=== PATIENT | male | born 1970 | race Caucasian/White ===

== ENCOUNTER → 2017-05-07 | Outpatient (CLI) | payer OTHER ==
[~2017-05-07] VITALS: Ht 188 cm; Wt 124.7 kg
[~2017-05-07] MED LIST: BYSTOLIC 5 MG5 M1 PO; CRESTOR5 MG PO; DIOVAN 80 MG TA80 M1 PO; ZANTAC 150MG T150 MG PO
--- NOTE | ~2017-05-07 | CATHLAB ---
[facility] [address] [place] [address] INVASIVE PROCEDURE REPORT Name: ELIAS OLIVEIRA Room #: REG Vaishali#: [id number] Admission: 05/07/17 Attend Phys: Sherif Kent Discharge: Date of : 66 Date of Service: 05/08/17 0948 Report #: [id number] THIS REPORT FOR: //name// APPROVED REPORT Patient Details Patient Status: Out-Patient Room #: The patient is a 47 year-old male Event Personnel Sherif Dwyer Industrial Paramedic, Natasha Rios Monitor, Rodrigo Duran RN, Gabriel Shaw, Mayank Mancuso RT(R)(CV) Monitor Procedures Performed Art Access - R femoral artery* [id number] Initial Mod Sed Same Phys/QHP Gr5y [id number] Left Heart Cath w/or w/o Coronaries [id number] [facility] Hemostasis with Manual pressure, supervision of conscious sedation Indication Dyspnea, Positive stress test, Chest pain Procedure Narrative The patient was brought electively to the Cardiac Catheterization Laboratory and was prepped and draped in a sterile manner. The Right Groin^ was infiltrated with 1% Lidocaine subcutaneous anesthesia. The right femoral accessed via ultrasound guidance. A PINNACLE 4FR Sheath #[id number] sheath was inserted into the RFA^. Coronary angiography was performed using coronary diagnostic catheters. The right coronary system was accessed and visualized with a JR4 catheter. The left coronary system was accessed and visualized with a JL4 catheter. The left ventricle was accessed and visualized with a JR4 catheter. Left ventricular/Aortic Valve gradient assessed via catheter pullback. Hemostasis was obtained with manual pressure following sheath removal without any complications. The patient tolerated the procedure well and there were no complications associated with the procedure. There was no hematoma. Intraoperative Conscious Sedation Sedation start time: 952 Case end Time: 1008 Versed 2 mg Fluoro Time: 2.40 minutes [facility] [place] [address] [place] [address] INVASIVE PROCEDURE REPORT Name: ELIAS OLIVEIRA Room #: REG Vaishali#: [id number] Admission: 05/07/17 Attend Phys: Sherif Kent Discharge: Date of : 66 Date of Service: 05/08/17 0948 Report #: [id number] Dose: DAP 4196.00 cGycm2 636 mGy Contrast Type and Amount: Omnipaque 60 ml Diagnostic Cath Left Main Normal origin and moderate caliber bifurcating into a left anterior descending and left circumflex coronary artery. Free of high-grade stenosis. LAD Small to moderate caliber vessel which has luminal irregularities of 30% or less in the proximal portion. Beyond the origin of the first septal human services instructor the vessel then proceeded any anterior interventricular sulcus tapering in its size bifurcating at its terminus at the apex is a type II vessel. There is no significant high-grade lesions identified. Circumflex Small to moderate caliber vessel which gives rise to an early small caliber marginal branch. There is an eccentric lesion that appears to be from 40-80% in different views proximally but that is not appeared to decrease antegrade flow significantly. The marginal and continues towards the apex. The circumflex stent procedure in the AV groove terminating as a small posterior wall branch OM1 Small to moderate caliber vessel which has an eccentric proximal lesion ranging in size from 40-80% depending on the view. It involves the origin and is at an angulation from the circumflex proper. Right Coronary Moderate caliber vessel of normal origin proceeds in the AV groove giving rise to an RV marginal branch free of high-grade disease. The right coronary then continues posteriorly to the crux of the heart where it gives rise to a moderate caliber posterior descending artery which is free of high-grade disease but does have some luminal irregularities. The distal right coronary artery consists of a small posterolateral branch free of high-grade obstructive lesions. Left Ventriculography Left Ventriculography was not performed. Hemodynamics The aortic pressure is 161/99 mmHg with a mean of 125 mmHg. The left ventricular pressure is 175/10 mmHg with a mean of mmHg. The left ventricular end diastolic pressure is 28 mmHg. Conclusion 1. Coronary disease, at least moderate circumflex marginal branch lesion 2. Normal hemodynamics Recommendations [address] [address] INVASIVE PROCEDURE REPORT Name: ELIAS OLIVEIRA Room #: REG AMEENA Tom#: [id number] Admission: 05/07/17 Attend Phys: Sherif Kent Discharge: Date of : 66 Date of Service: 05/08/17 0948 Report #: [id number] Cardiac Risk Reduction Program Aggressive Medical Therapy In view of the origin of the lesion being a sub-optimal location for standard PCI stenting I will optimize medical regimen control hypertension and proceed with a vigorous medical optimization regimen. We'll also obtain information on bifurcating stents so that we can consider that as an option <ELECTRONICALLY SIGNED> By: Sherif Dwyer MD 05/08/17947 7 7 Sherif Dwyer MD /INF
[2017-05-07 08:20] VITALS: BP 142/84
[2017-05-07 08:57] LABS: HEMATOCRIT 48.5 % (42.0-52.0); HEMOGLOBIN 16.5 gm/dL (14.0-18.0); MCHC 34.1 g/dL (28.0-37.0); MCV 96.8 fL (80.0-100.0); RBC 5.01 mil/uL (4.50-6.00); RDW 13.6 % (10.5-14.5); WBC 6.1 thou/uL (4.0-11.0)
[2017-05-07 09:02] LABS: CALCIUM 8.9 mg/dL (8.5-10.1); CREATININE 1.1 mg/dL (0.7-1.3); POTASSIUM 4.3 mmol/L (3.5-5.1)
== END | disposition home or self-care (01) ==
LOC: CATH 07:49
PROVIDERS: Internal Medicine
DX: I25.10 Atherosclerotic heart disease of native coronary artery without angina pectoris (principal); K21.9 Gastro-esophageal reflux disease without esophagitis; I10 Essential (primary) hypertension; Z98.890 Other specified postprocedural states